=== PATIENT | female | born 1980 | race African-American/Black ===

== ENCOUNTER 2019-02-20 10:31 | Emergency (ER) | payer SELFPAY ==
[~2019-02-20] VITALS: Ht 172.7 cm; Wt 71.6 kg
[2019-02-20] MEDS ORDERED: HYDROcodone/APAP 5/325 TABLET ONE (11:14)
[2019-02-20] MEDS ORDERED: HYDROcodone/APAP 5/325 TABLET PO ONE (11:30)
[2019-02-20] MEDS ORDERED: SODIUM CHLORIDE FLUSH 10ML SYR IVF ONE (13:00)
--- NOTE | 2019-02-20 13:02 | NUR ---
PT TAKEN TO RADIOLOGY
[2019-02-20] MEDS ORDERED: OMNIPAQUE 350 MG/ML, 100ML BOTTLE ONE (13:13)
--- NOTE | 2019-02-20 13:14 | NUR ---
PUT 20G IN RIGHT AC FOR CT. SENT PT BACK TO CT WITH IV.
--- NOTE | 2019-02-20 14:00 | NUR ---
PT RESTING IN BED AWAITNG FURTHER TEST RESULTS
[2019-02-20 14:01] LABS: MICROSCOPIC NOT IND
[2019-02-20 14:07] LABS: CULTURE INDICATED? NO
--- NOTE | 2019-02-20 15:00 | NUR ---
LATE ENTRY FOR 11:00 PT PRESENTED TO ED WITH NECK PAIN AFTER A SHELF FELL ON HER WHILE AT [employer]. PT THEN DEVELOPED SEVER NECK PAIN IN THE BACK OF HER NECK AFTER THIS TODAY. PT PLACED IN C=COLLAR.
[2019-02-20 15:02] VITALS: BP 127/76
== END 2019-02-20 15:11 | disposition home or self-care (01) ==
LOC: ED 14:25
DX: S16.1XXA Strain of muscle, fascia and tendon at neck level, initial encounter (principal); S39.012A Strain of muscle, fascia and tendon of lower back, initial encounter; S29.012A Strain of muscle and tendon of back wall of thorax, initial encounter; S30.1XXA Contusion of abdominal wall, initial encounter; S30.0XXA Contusion of lower back and pelvis, initial encounter; W19.XXXA Unspecified fall, initial encounter; Y93.89 Activity, other specified; Y92.512 Supermarket, store or market as the place of occurrence of the external cause; Y99.8 Other external cause status
CPT/HCPCS: 70491; 72072; 72110; 72125; 81003; 99284; Q9967

== ENCOUNTER 2019-02-25 10:00 | Emergency (ER) | payer MEDICAID, OTHER ==
[~2019-02-25] VITALS: Ht 172.7 cm; Wt 73.0 kg
[2019-02-25 10:05] VITALS: BP 112/74
[2019-02-25] MEDS ORDERED: DIAZEPAM 5 MG TABLET ONE (10:37)
[2019-02-25] MEDS ORDERED: KETOROLAC 30 MG/1 ML ONE (10:37)
[2019-02-25] MEDS ORDERED: DIAZEPAM 5 MG TABLET PO ONE (11:00)
[2019-02-25] MEDS ORDERED: KETOROLAC 30 MG/1 ML IM ONE (11:00)
== END 2019-02-25 11:22 | disposition home or self-care (01) ==
LOC: ED 11:01
DX: S16.1XXA Strain of muscle, fascia and tendon at neck level, initial encounter (principal); F17.200 Nicotine dependence, unspecified, uncomplicated; G43.909 Migraine, unspecified, not intractable, without status migrainosus; Z88.5 Allergy status to narcotic agent; X58.XXXA Exposure to other specified factors, initial encounter; Y93.89 Activity, other specified; Y92.89 Other specified places as the place of occurrence of the external cause; Y99.8 Other external cause status
CPT/HCPCS: 96372; 99283; J1885